=== PATIENT | female | born 1985 | race African-American/Black ===

== ENCOUNTER 2023-05-14 11:26 | Emergency (ER) | payer OTHER ==
[~2023-05-14] VITALS: Ht 152.4 cm; Wt 91.0 kg
[2023-05-14 11:42] VITALS: O2SAT 99
[2023-05-14 13:20] VITALS: BP 130/70; PULSE 69; RESP 16; TEMP 98.3
== END 2023-05-14 13:35 ==
LOC: ER 11:26
DX: M54.9 Dorsalgia, unspecified (principal); M25.562 Pain in left knee; E78.00 Pure hypercholesterolemia, unspecified
CPT/HCPCS: 72100; 73560; 81025; 99284